=== PATIENT | male | born 1980 | race Caucasian/White ===

== ENCOUNTER 2018-10-22 03:34 | Emergency (ER) | payer MEDICAID, SELFPAY ==
[2018-10-22 03:36] VITALS: BP 141/97; PULSE 111; RESP 16; TEMP 36.7; O2SAT 100; BMI 29.5
--- NOTE | 2018-10-22 03:49 | RAD_ITS ---
STUDY: X-RAY - LEFT KNEE REASON FOR EXAM: Male, 38 years old. Tripped on curb. TECHNIQUE: 4 view(s) of the knee. COMPARISON: None. FINDINGS: Normal visualized distal femur. Normal visualized proximal tibia and fibula. Normal proximal tibiofibular articulation. Normal medial femorotibial compartment. Normal lateral femorotibial compartment. There is a linear lucency superior lateral aspect of the patella probably representing a multipartite patella or less likely a fracture. The soft tissue structures are unremarkable. RAD/Knee 4 or More Views IMPRESSION: Probable multipartite patella which is a normal variant, in this patient involving the superior lateral aspect of the patella. A fracture is less likely. Electronically Signed: Rajendra Bhardwaj MD at 4:25 EDT , Service support ,
--- NOTE | 2018-10-22 03:49 | RAD_ITS ---
STUDY: X-RAY - LEFT FOOT CLINICAL: Male, 38 years old. Tripped on curb. TECHNIQUE: 3 view(s) of the foot. COMPARISON: None. FINDINGS: Normal talus, calcaneus, and tarsal bones. Plantar calcaneal bone spur. Normal visualized subtalar, talonavicular, calcaneocuboid, tarsal and tarsometatarsal articulations. Normal metatarsi. Normal metatarsophalangeal joint of the great toe. Normal tibial and fibular sesamoid bones. Normal interphalangeal joint of the great toe. Normal phalanges of the great toe. Normal second through fifth metatarsophalangeal joints. Normal interphalangeal joints and phalanges of the lesser toes. The soft tissue structures are unremarkable. RAD/Foot min 3 Views IMPRESSION: No acute findings in the foot. Electronically Signed: Rajendra Bhardwaj MD at 4:29 EDT , Service support ,
--- NOTE | 2018-10-22 04:00 | RAD_ITS ---
STUDY: X-RAY - LEFT ANKLE REASON FOR EXAM: Male, 38 years old. Tripped on curb. TECHNIQUE: 3 view(s) of the ankle. COMPARISON: None. FINDINGS: Alignment is normal. 6 mm well-corticated osseous density distal to the fibula probably representing an old avulsion fracture. Distal tibia is normal. Mortise joint is well maintained. There is mild soft tissue swelling adjacent to the lateral malleolus. Plantar calcaneal bone spur. RAD/Ankle min 3 Views IMPRESSION: Avulsion fracture distal fibula which may represent an old injury. Mild lateral soft tissue swelling. Electronically Signed: Rajendra Bhardwaj MD at 4:28 EDT , Service support ,
--- NOTE | 2018-10-22 04:55 | ED.DCSUM_ITS ---
- ER Visit Summary Date of Service: 10/22/18 Chief Complaint: Left ankle injury History of Present Illness: The patient is a 38 M who presents with a left ankle injury. This occurred about 8 hours before presentation. He states he rolled his ankle on a curb. He did take Percocet at the time of injury. He has been able to ambulate. No other injuries. Physical Examination: Heart rate 111 vitals otherwise unremarkable Heart regular tachycardia Lungs clear Patient has pain on palpation over the lateral left knee diffusely over the ankle even with very light touch as well as tenderness in the foot however he is neurovascularly intact with normal sensation light touch brisk capillary refill easily palpable dorsalis pedis pulse there is mild soft tissue swelling over the lateral ankle Test Results: X-ray of the knee shows a multipartite patella. X-ray of the ankle shows what appears to be an old avulsion fracture of the distal fibula. This is well corticated. Foot x-ray unremarkable. Emergency Department Course and Treatment: X-rays as above show no acute fracture. On review of the images I believe the avulsion fracture to be old as it is well-corticated. Patient was given an Aircast and crutches. He was given a prescription for naproxen. He was advised on supportive care including rest ice and elevation. Treatment Plan: [] Disposition: Discharge Impression: Left ankle sprain This note was generated with [employer] dictation software. It may contain incorrect words, spelling, and punctuation that were not noted in review of the chart prior to signing ED Disposition - Plan for ED Patient: Referrals: Care Physician,No Primary [Primary Care Provider] -
--- NOTE | 2018-10-22 04:55 | ED.DEP ---
ED Disposition - Plan for ED Patient: Instructions: ED Sprain Ankle W X Ray Prescriptions: Naproxen [Naprosyn] 500 mg PO BID #20 tab Referrals: Care Physician,No Primary [Primary Care Provider] -
== END 2018-10-22 05:05 | disposition home or self-care (01) ==
LOC: ED 03:53
PROVIDERS: Emergency Provider Emergency Medicine
DX: S93.402A Sprain of unspecified ligament of left ankle, initial encounter (principal); X50.1XXA Overexertion from prolonged static or awkward postures, initial encounter; Y93.9 Activity, unspecified; Y92.480 Sidewalk as the place of occurrence of the external cause; Y99.9 Unspecified external cause status; Z72.0 Tobacco use
CPT/HCPCS: 73564; 73610; 73630; 99284